=== PATIENT | male | born 1990 | race Caucasian/White ===

== ENCOUNTER 2017-12-16 05:06 | Emergency (ER) | payer OTHER ==
[2017-12-16] MEDS ORDERED: Sodium Chloride 0.9% 1,000 ML IV ONE (05:28)
--- NOTE | 2017-12-16 05:28 | C.PDOC ---
Addendum entered and electronically signed by Luis Armando Young 12/16/17 11:08: Addendum Addendum: 12/16/17 11:08 leukocytosis likely reactive, lungs cta b/l. no meningeal signs or rash. Addendum entered and electronically signed by Luis Armando Young 12/16/17 11:07: Addendum Addendum: 12/16/17 11:07 pt Was seen by Dr. Burgos (surgery) Original Note: History Of Present Illness Patient comes in complaining of severe abdominal pain since midnight. There were some nausea and vomiting in ED. No fever or chills. Sharp stabbing 5/10 abdominal pain. <Leonard Bustillos - Last Filed: 12/16/17 05:43> History Per: Patient History/Exam Limitations: no limitations Onset/Duration Of Symptoms: Hrs Current Symptoms Are (Timing): Still Present Severity: Severe Pain Scale Rating Of: 5 Radiation Of Pain To:: None Quality Of Discomfort: Sharp Associated Symptoms: Nausea, Vomiting. denies: Fever, Chills <Leonard Bustillos - Last Filed: 12/16/17 05:43> <Luis Armando Young - Last Filed: 12/16/17 11:06> Time Seen by Provider: 12/16/17 05:28 Chief Complaint (Nursing): Abdominal Pain Past Medical History Reviewed: Historical Data, Nursing Documentation, Vital Signs Vital Signs: Last Vital Signs Temp 98.6 F 12/16/17 05:16 Pulse 104 H 12/16/17 05:16 Resp 16 12/16/17 05:16 BP 142/92 H 12/16/17 05:16 Pulse Ox 100 12/16/17 05:16 - Medical History PMH: Pneumonia (4 mos. ago) Family History: States: No Known Family Hx - Social History Hx Alcohol Use: No Hx Substance Use: No - Immunization History Hx Tetanus Toxoid Vaccination: No Hx Influenza Vaccination: Yes Hx Pneumococcal Vaccination: No <Leonard Bustillos - Last Filed: 12/16/17 05:43> Vital Signs: Last Vital Signs Temp 98.8 F 12/16/17 06:34 Pulse 95 H 12/16/17 06:34 Resp 14 12/16/17 06:34 BP 131/77 12/16/17 06:34 Pulse Ox 99 12/16/17 06:34 <Luis Armando Young - Last Filed: 12/16/17 11:06> Review Of Systems Constitutional: Negative for: Fever, Chills Cardiovascular: Negative for: Chest Pain Respiratory: Negative for: Shortness of Breath Gastrointestinal: Positive for: Nausea, Vomiting, Abdominal Pain. Negative for: Diarrhea Neurological: Negative for: Weakness, Numbness <Leonard Bustillos - Last Filed: 12/16/17 05:43> Physical Exam - Physical Exam Appears: Non-toxic, No Acute Distress Skin: Warm, Dry Head: Normacephalic Eye(s): bilateral: Normal Inspection Oral Mucosa: Moist Cardiovascular: Rhythm Regular Respiratory: No Rales, No Rhonchi, No Wheezing Gastrointestinal/Abdominal: Soft, Tenderness (diffuse) Extremity: Bilateral: Normal Color And Temperature Neurological/Psych: Oriented x3 Gait: Steady <Leonard Bustillos - Last Filed: 12/16/17 05:43> ED Course And Treatment O2 Sat by Pulse Oximetry: 100 (RA) Pulse Ox Interpretation: Normal Progress Note: CT Abd/Pel, labs, and urinalysis ordered. Protonix, IV fluids, toradol, and Zofran administered. <Leonard Bustillos - Last Filed: 12/16/17 05:43> - Laboratory Results Result Diagrams: 12/16/17 05:40 12/16/17 05:40 <Luis Armando Young - Last Filed: 12/16/17 11:06> Medical Decision Making Medical Decision Making: Recieved signout from Dr. Bustillos: 27 yr old male w/ hx of colostomy w/ reversal p/w leukocytosis- pending CT, reassessment. 0740 PT in NAD with VSS partial SBO on CT- appreciate consult w/ rn surgical- to see pt. 1104 seen by surgery: clear for d/c home Pain resolved. no abd tenderness on my exam. No peritoneal signs or rebound tenderness. Passing gas in ER well. Likely gastritis 2ndary to lentils and heavy cream diet. Will have pt d/c such meals. <Luis Armando Young - Last Filed: 12/16/17 11:06> Disposition Counseled Patient/Family Regarding: Studies Performed, Diagnosis - Disposition Disposition Time: 05:28 <Leonard Bustillos - Last Filed: 12/16/17 05:43> <Luis Armando Young - Last Filed: 12/16/17 11:06> - Disposition Condition: GOOD Forms: [employer] [employer] ([place]uan) - Clinical Impression Clinical Impression: Gastroenteritis, Abdominal pain - Scribe Statement Yojana Bender Provider Attestation: All medical record entries made by the Scribe were at my direction and personally dictated by me. I have reviewed the chart and agree that the record accurately reflects my personal performance of the history, physical exam, medical decision making, and the department course for this patient. I have also personally directed, reviewed, and agree with the discharge instructions and disposition. <Leonard Bustillos - Last Filed: 12/16/17 05:43>
[2017-12-16 05:44] LABS: BASO # 0.1 K/uL (0.0-0.2); BASO % 0.5 % (0.0-2.0); EOS # 0.6 K/uL (0.0-0.7); EOS % 3.8 % (0.0-4.0); HEMOGLOBIN 14.1 g/dL (12.0-18.0); LYMPH # 3.5 K/uL (1.0-4.3); LYMPH % 21.7 % (20.0-40.0); MEAN CELL VOLUME 70.1 fL (80.0-94.0); MEAN CORPUSCULAR HEMOGLOBIN 22.1 pg (27.0-31.0); MEAN CORPUSCULAR HGB CONC 31.5 g/dL (33.0-37.0); MEAN PLATELET VOLUME 8.9 fL (7.2-11.7); MONO # 1.1 K/uL (0.0-0.8); MONO % 6.7 % (0.0-10.0); NEUT # 10.8 K/uL (1.8-7.0); NEUT % 67.3 % (50.0-75.0); RBC 6.38 Mil/uL (4.40-5.90); RED CELL DISTRIBUTION WIDTH 17.4 % (11.5-14.5); WHITE BLOOD COUNT 16.1 K/uL (4.8-10.8)
[2017-12-16] MEDS ORDERED: Iodixanol 320 MG/ML 100 ML BOTTLE IV ONE (05:52)
[2017-12-16 05:55] LABS: ALB/GLOB RATIO 1.4 (1.0-2.1); ALBUMIN 4.8 g/dL (3.5-5.0); ALT/SGPT 44 U/L (21-72); AST/SGOT 24 U/L (17-59); BLOOD UREA NITROGEN 15 mg/dL (9-20); GFR NON-AFRICAN AMERICAN > 60; LIPASE 50 U/L (23-300)
[2017-12-16] MEDS ORDERED: Piperacillin/Tazobact 3.375 gm 100 ML IVPB STA (06:51)
[2017-12-16 06:53] LABS: SQUAMOUS EPITHIAL < 1 /hpf (0-5); URINE BILIRUBIN NEGATIVE (NEGATIVE); URINE BLOOD NEGATIVE (NEGATIVE); URINE CLARITY Clear (Clear); URINE COLOR Straw (YELLOW); URINE GLUCOSE (UA) NORMAL (Normal); URINE LEUKOCYTE ESTERASE NEG Leu/uL (Negative); URINE PROTEIN NEGATIVE (NEGATIVE); URINE UROBILINOGEN NORMAL mg/dL (0.2-1.0)
[2017-12-16 08:15] VITALS: O2SAT 100
[2017-12-16 11:14] VITALS: BP 126/77; PULSE 71; RESP 16; TEMP 98.1
--- NOTE | 2017-12-16 12:38 | CT ---
Date of service: 12/16/2017 PROCEDURE: CT abdomen pelvis. HISTORY: Abdomen pain with history of colostomy reversal COMPARISON: No prior TECHNIQUE: Contiguous helical/transaxial images of the abdomen and pelvis performed following intravenous injection of approximately 100 cc Omnipaque 320 contrast material. Additional 2D sagittal and coronal reformats generated. Radiation dose: Total exam DLP = 266.69 mGy-cm. This CT exam was performed using one or more of the following dose reduction techniques: Automated exposure control, adjustment of the mA and/or kV according to patient size, and/or use of iterative reconstruction technique. FINDINGS: LOWER THORAX: Heart size within range of normal. No significant pericardial effusion. Tiny hiatal hernia. Lung bases clear. No infiltrate effusion or basilar pneumothorax. LIVER: Liver exhibits relatively normal size. No obvious hepatic mass collection or calcification. Portal and splenic veins are opacified. GALLBLADDER AND BILE DUCTS: Gallbladder is incompletely distended which presumably accounts for thick-walled appearance. No definitive intraluminal gallbladder calculi however clinical correlation recommended to exclude the possibility of acalculous cholecystitis. PANCREAS: Unremarkable. No mass. No ductal dilatation. SPLEEN: Spleen is upper limits of normal measuring nearly 13 cm in AP dimension. No splenic masses or collections. ADRENALS: There are no adrenal lesions seen.. KIDNEYS AND URETERS: Kidneys demonstrate symmetric nephrograms. No evidence of nephrolithiasis or hydronephrosis. BLADDER: Urinary bladder is physiologically distended. No evidence of intraluminal urinary bladder calculi. REPRODUCTIVE: Seminal vesicles and prostate gland unremarkable. APPENDIX: Unremarkable. BOWEL: Evaluation of the bowel is somewhat limited due to the lack of oral contrast material. There appears to have been partial right sided colectomy with anastomosis seen in the right parasagittal lower abdomen just above the level of the superior margins of the iliac bones and just lateral to the level of the umbilicus.. And near the.. There is dilatation of the distal small bowel with what may represent an adherent short segment of small bowel along the right anterolateral abdominal wall at the level of the closed ostomy site. Findings could represent a partial/intermittent small bowel obstruction. Large amount of stool is seen throughout the remaining proximal and transverse and to a lesser degree proximal descending colon suggesting fecal retention/constipation. Clinical correlation recommended... Overlying surgical changes right anterolateral lower abdominal wall. The stomach is partially distended with food debris liquid and air. PERITONEUM: No gross free intraperitoneal air. No drainable fluid collections are identified. LYMPH NODES: Unremarkable. No enlarged lymph nodes. VASCULATURE: Unremarkable. No aortic aneurysm. BONES: Minor multilevel degenerative spondylosis of the lower thoracic and lumbar spine. OTHER FINDINGS: None. IMPRESSION: Partial right sided colectomy with anastomosis seen in the right parasagittal lower abdomen just above the level of the superior margins of the iliac bones and just lateral to the level of the umbilicus.. And near the.. There is dilatation of the distal small bowel with what may represent an adherent short segment of small bowel at the level of the closed ostomy site. Findings could represent a partial/intermittent small bowel obstruction. Large amount of stool is seen throughout the remaining proximal and transverse and to a lesser degree proximal descending colon suggesting fecal retention/constipation. Clinical correlation recommended... Overlying surgical changes right anterolateral lower abdominal wall. See above discussion for additional details and findings
== END 2017-12-16 11:14 | disposition home or self-care (01) ==
LOC: C.ER 05:06
DX: R10.9 Unspecified abdominal pain (principal); K52.9 Noninfective gastroenteritis and colitis, unspecified
CPT/HCPCS: 74177; 80053; 81001; 83690; 85025; 96361; 96365; 96375; 99285; C9113; J1885; J2405; J2543; J7030; Q9967